=== PATIENT | male | born 1975 | race Caucasian/White ===

== ENCOUNTER → 2019-02-28 | Outpatient (REF) ==
--- NOTE | 2019-03-01 03:58 | REP ---
Clinical: Pain and disability. Technique: AP, lateral, coned-down views of the lumbosacral spine. Findings: Alignment and lordosis maintained. No acute fracture / compression injury or subluxation. Mild disc space narrowing at L4-5 and L5-S1 noted. Remainder examination is normal for age. Impression: Mild disc space narrowing. Electronically Signed by Wale Vazquez MD 03/01/2019 03:50 A
== END ==
LOC: M SMT 13:30
PROVIDERS: ATTEND Internal Medicine
DX: M51.36 Other intervertebral disc degeneration, lumbar region (principal)